=== PATIENT | female | born 2000 | race Caucasian/White ===

== ENCOUNTER 2019-06-26 19:52 | Emergency (ER) | payer SELFPAY ==
[~2019-06-26] VITALS: Ht 157.5 cm; Wt 74.4 kg
[2019-06-26 20:02] VITALS: BP 120/67; Ht 157.5 cm; Wt 74.4 kg
== END 2019-06-26 20:37 | disposition home or self-care (01) ==
LOC: ED 19:52
DX: J06.9 Acute upper respiratory infection, unspecified (principal)